=== PATIENT | male | born 1930 | race Caucasian/White ===

== ENCOUNTER → 2020-03-18 | Outpatient (CLI) | payer MEDICARE ==
[2020-03-18 09:51] VITALS: BP 133/84; PULSE 79; RESP 16; TEMP 97.6
--- NOTE | 2020-03-18 10:18 | P.PAINCN ---
History of Present Illness - Reason for Consult Consult date: 03/18/20 - History of Present Illness This is an initial consultation visit for this 89 years old male with a chronic history of severe low back pain with radiation to the lower extremity bilaterally associated with numbness and tingling sensation, the pain is constant and increases with any activity he tried physical therapy, with some benefit, the pain increases with any activity and especially increased with laying flat, and the pain and the numbness waking him up at night, to share with his quality of, he tried physical therapy and chiropractics and he continued to have severe pain, he was evaluated by neurosurgery , and recommended interventional pain management before the surgical option, vision denies any fever or night sweats he denies any change in the bowel movement or urination Past Medical History Past Medical History: Coronary Artery Disease (CAD), Hyperlipidemia, Hypertension Additional Past Medical History / Comment(s): hx of anemia, prostate ca, states neuropathy, states back pain with activity History of Any Multi-Drug Resistant Organisms: None Reported Past Surgical History: Heart Catheterization With Stent Additional Past Surgical History / Comment(s): prostatectomy Past Anesthesia/Blood Transfusion Reactions: No Reported Reaction Date of Last Stent Placement:: 1999 Past Psychological History: No Psychological Hx Reported Smoking Status: Former smoker Past Alcohol Use History: None Reported Additional Past Alcohol Use History / Comment(s): quit smoking cigars approx 25yrs ago, Past Drug Use History: None Reported Medications and Allergies Home Medications Medication Instructions Recorded Confirmed Type Atorvastatin [Lipitor] 40 mg PO DAILY 03/14/20 03/14/20 History Calcium Carbonate [Calcium] 600 mg PO BID 03/14/20 03/14/20 History Ferrous Sulfate [Feosol] 325 mg PO MOWEFR 03/14/20 03/14/20 History Fluticasone Nasal [place] [Flonase 2 spr EA NOSTRIL HS 03/14/20 03/14/20 History Nasal [place]] Gabapentin [Neurontin] 300 mg PO TID 03/14/20 03/14/20 History Losartan [Cozaar] 50 mg PO DAILY 03/14/20 03/14/20 History polyethylene glycoL 3350 [Miralax] 17 gm PO DAILY 03/14/20 03/14/20 History Allergies Allergy/AdvReac Type Severity Reaction Status Date / Time No Known Allergies Allergy Verified 03/18/20 09:39 Physical Exam Vitals: Vital Signs Temp Pulse Resp BP Pulse Ox 03/18/20 09:40 97.6 F 79 16 133/84 100 Physical Examinations : -Constitutiona : Cooperative , not in acute distress . -HEENT : nech : supple , no Lymphadenopathy , normal thyroid size . : eyes : no ptosis , no icterus, no photophobia . - neurologic : Cranial nerve II to XII intact , no focal neurological deffecit . -psychatric : alert , oriented X 3 , appropriate affect , intact judgment and insight . -Lymphatic : no Lymphadenopathy . - musculoskeltal : Lumber spine moter stegnth lower extremities ,thigh and legs 5/5 Right side , 5/5 Left side deep tendon reflexes : normal Knee Jerk , normal ankle Jerk lumber facet Loading Test =positive Right , positive Left Range of motion of the lumbar spine Flexion 30 degrees, extension 10 degrees strait leg raising test = positive at 30 degree bilaterally Fabere test= positive Right , and positive LT . mild tenderness over the Sacroiliac joint on the Right , and Left sides Results Comments: MRI of the lumbar spine without contrast showed multilevel degenerative disc disease and severe spinal stenosis at L3 4 L4 5 and central canal stenosis at L2-3 Assessment and Plan Plan: Assessment and plan=1-lumbar degenerative disc disease. 2-lumbar spinal stenosis multilevels (L2 3 L3 4 and L4 5 ). Patient could benefit from lumbar epidural steroid injections at L4-5 or at L3-4 , procedure risk and benefits and alternatives discussed with the patient he agreed with the preceding Time with Patient: Greater than 30 PQRS Measure Charge Sheet Measure #130: Documentation of Current Meds in Medical Chart: Patient's medications documented in chart Measure #226: Tobacco Use: Screen & Cessation Intervention: Pt not a tobacco user Measure #111: Pneumonia Vaccination: Pneumococcal vaccine NOT administered or previously given Measure #47: Advance Care Plan: Advance care planning discussed & documented, pt chose/unable to give Measure #412: Opioid Treatment Agreement: No documentation of signed opioid treatment agreement Measure #408: Opioid Therapy Follow-up Evaluation: Patient had NO f/u eval minimum every 3 months during opioid therapy Measure #317: Preventitive Care & Scrn High Bld Press & F/U: Normal blood pressure, f/u not required Measure #128: Body Mass Index (BMI) Screening & Follow-up: BMI documented within normal parameters Measure #131: Pain Assessment & Follow-up: Pain positive & plan documented, Follow-up scheduled Measure #431: Unhealthy Alcohol Use Preventative Care & Scrn: Patient not identified as an unhealthy alcohol user PQRS Narrative: Blood Pressure 133/84 Pain Intensity [None] 0 Scale Used Numeric (1 - 10) Hx Alcohol Use (MH) No Home Medications: Ambulatory Orders Atorvastatin [Lipitor] 40 mg PO DAILY 03/14/20 Calcium Carbonate [Calcium] 600 mg PO BID 03/14/20 Ferrous Sulfate [Feosol] 325 mg PO MOWEFR 03/14/20 Fluticasone Nasal [place] [Flonase Nasal [place]] 2 spr EA NOSTRIL HS 03/14/20 Gabapentin [Neurontin] 300 mg PO TID 03/14/20 Losartan [Cozaar] 50 mg PO DAILY 03/14/20 polyethylene glycoL 3350 [Miralax] 17 gm PO DAILY 03/14/20
== END | disposition home or self-care (01) ==
LOC: PNWHC3 09:24
PROVIDERS: ATTEND Specialist
DX: M48.061 Spinal stenosis, lumbar region without neurogenic claudication (principal); M51.36 Other intervertebral disc degeneration, lumbar region; Z79.899 Other long term (current) drug therapy; Z79.891 Long term (current) use of opiate analgesic
CPT/HCPCS: 99211

== ENCOUNTER 2020-04-04 09:44 | Day surgery (SDC) | payer MEDICARE ==
[2020-04-03 10:18] VITALS: BMI 25.1
[~2020-04-04 09:44] MED LIST: LACTATED RINGERS 1,000 ML IV SCH
[2020-04-04 10:15] VITALS: TEMP 97.2
[2020-04-04] MEDS ORDERED: IOPAMIDOL M200 10 ML VIAL ONE (10:47)
[2020-04-04] MEDS ORDERED: methylPREDNISolone ACETATE 40 MG/ML 1 ML VIAL ONE (10:47)
--- NOTE | 2020-04-04 11:05 | P.PCN ---
Date of Procedure: 04/04/20 Procedure(s) Performed: PREOPERATIVE DIAGNOSIS: 1- Lumbar Degenerative Disc Diseases 2-Lumbar spinal stenosis POSTOPERATIVE DIAGNOSIS: Same as preop diagnosis. PROCEDURE 1. Lumbar epidural steroid injection under fluoroscopic guidance at the L$-5 level. (Fluoroscopy imaging was available in radiology department) 2. Lumbar epidurogram. ANESTHESIA: Local with 1% lidocaine 3 ml only. EBL: Minimal PROCEDURE INDICATION: The patient with low back pain and radiculitis symptoms unresponsive to conservative treatment. Fluoroscopy was used to optimize visualization of the needle placement and to maximize safety. PROCEDURE DESCRIPTION / TECHNIQUE: The patient was seen and identified in the preoperative area. Risks, benefits, complications including but not limited to infections ,bleeding ,allergic reaction to the medications ,nerve damage and not complete pain releife , and alternatives were discussed with the patient. The patient agreed to proceed with the procedure and signed the consent, and vital signs were stable. Patient was taken to the OR and time out was completed. The patient was placed in the prone position on procedure table and a pillow was placed under the abdomen to reduce lumbar lordosis. The lumbosacral area was prepped and draped in the usual sterile fashion.ere closely monitored during the procedure. Vital signs was monitered during the entire procedure. Using anterior-posterior fluoroscopy, the L4-5 interlaminar space was identified and the skin over this site was marked and then infiltrated with 1% lidocaine subcutaneously. Subsequently, a 20-gauge Tuohy epidural needle was inserted and advanced toward the epidural space using the ``Loss of resistance technique and guided by AP and lateral fluoroscopy. The correct needle position in the epidural space was verified with the injection of 2 mL of the water soluble contrast dye Isovue 200 contrast and observing an excellent epidurogram with the epidural spread of the dye, after negative aspiration for blood and CSF and in the absence of paresthesias. Again after negative aspiration, a 6 ml mixture containing 40 mg of Depo-medrol , and 2 ml of preservative free Normal Saline, and 2 ml of preservative free lidocaine 1% solution was injected and a washout of epidurogram was seen. Needle was withdrawn intact, skin was cleansed, and bandages were applied. COMPLICATIONS: None DISPOSITION / PLANS: The patient was placed in a supine position and transferred to the recovery area in a stable condition for observation. There was no evidence of lower extremity motor or sensory deficit after the procedure. Patient was discharged from the recovery room after meeting discharge criteria. Home discharge instructions were given to the patient by the staff. The patient was reexamined prior to discharge. The patient will schedule a follow up in the clinic in 2-4 weeks.
[2020-04-04] MEDS ORDERED: IV FLUID CONTINUATION 1,000 ML IV ONE (11:10)
[2020-04-04 11:12] VITALS: BP 132/83; PULSE 64; RESP 16
--- NOTE | 2020-04-04 11:18 | FL ---
EXAMINATION TYPE: FL guided pain mgmt statistic DATE OF EXAM: 04/04/2020 CLINICAL HISTORY: Low back pain. TECHNIQUE: Fluoroscopy. COMPARISON: None. FINDINGS: Fluoroscopic guidance was provided during pain relief procedure performed by Dr. Wheeler . A total of 4 seconds of fluoroscopic time was utilized during the procedure and 1 spot images are acquired. Single image acquired shows needle localization at the superior L5 level. IMPRESSION: As Above.
== END 2020-04-04 11:32 | disposition home or self-care (01) ==
LOC: ORPAIN 09:44
PROVIDERS: ATTEND Specialist
DX: M51.16 Intervertebral disc disorders with radiculopathy, lumbar region (principal); M48.061 Spinal stenosis, lumbar region without neurogenic claudication
CPT/HCPCS: 62323; J1030; Q9966

== ENCOUNTER → 2020-05-06 | Outpatient (CLI) | payer MEDICARE ==
[2020-05-06 09:21] VITALS: BP 136/82; PULSE 83; RESP 18; TEMP 97.7
--- NOTE | 2020-05-06 09:37 | P.PN ---
Subjective Progress Note Date: 05/06/20 This is Follow up visit for this 89 years old male with a chronic history of severe low back pain with radiation to the lower extremity bilaterally associated with numbness and tingling sensation, the pain is constant and increases with any activity he tried physical therapy, with some benefit, the pain increases with any activity and especially increased with laying flat, and the pain and the numbness waking him up at night, to share with his quality of, he tried physical therapy and chiropractics and he continued to have severe pain, he was evaluated by neurosurgery , and recommended interventional pain management before the surgical option, vision denies any fever or night sweats he denies any change in the bowel movement or urination, recently we did lumbar epidural steroid injection at the L4 5 levels x1 he continue to have severe lower extremity pain and numbness and tingling sensation, he had minimal benefit from it, he continued to use Neurontin 300 mg 3 times a day and he reported that he had 0 benefits from it Objective - Vital Signs Vital signs: Vital Signs Temp 97.7 F 05/06/20 09:18 Pulse 83 05/06/20 09:18 Resp 18 05/06/20 09:18 BP 136/82 05/06/20 09:18 Pulse Ox 99 05/06/20 09:18 - Exam -Constitutiona : Cooperative , not in acute distress . -HEENT : nech : supple , no Lymphadenopathy , normal thyroid size . : eyes : no ptosis , no icterus, no photophobia . - neurologic : Cranial nerve II to XII intact , no focal neurological deffecit . -psychatric : alert , oriented X 3 , appropriate affect , intact judgment and insight . -Lymphatic : no Lymphadenopathy . - musculoskeltal : Lumber spine moter stegnth lower extremities ,thigh and legs 5/5 Right side , 5/5 Left side deep tendon reflexes : normal Knee Jerk , normal ankle Jerk lumber facet Loading Test =positive Right , positive Left Range of motion of the lumbar spine Flexion 30 degrees, extension 10 degrees strait leg raising test = positive at 30 degree bilaterally Fabere test= positive Right , and positive LT . mild tenderness over the Sacroiliac joint on the Right , and Left sides Assessment and Plan Plan: MRI of the lumbar spine without contrast showed multilevel degenerative disc disease and severe spinal stenosis at L3 4 L4 5 and central canal stenosis at L2-3 Assessment and Plan Plan: Assessment and plan=1-lumbar degenerative disc disease. 2-lumbar spinal stenosis multilevels (L2- 3, L3-4 and L4 5 ). Patient could benefit from repeat lumbar epidural steroid injections at L4-5 , procedure risk and benefits and alternatives discussed with the patient he agreed with the preceding. if he has no benefit from the injection then patient would be a candidate to have surgery He could benefit from changing his Neurontin to Lyrica 50 mg 3 times a day(patient being on Neurontin 300 mg 3 times a day for several months without any benefit) PQRS Measure Charge Sheet Measure #130: Documentation of Current Meds in Medical Chart: Patient's medications documented in chart Measure #226: Tobacco Use: Screen & Cessation Intervention: Pt not a tobacco user Measure #111: Pneumonia Vaccination: Pneumococcal vaccine NOT administered or previously given Measure #47: Advance Care Plan: Advance care planning discussed & documented, pt chose/unable to give Measure #412: Opioid Treatment Agreement: No documentation of signed opioid treatment agreement Measure #408: Opioid Therapy Follow-up Evaluation: Patient had NO f/u eval minimum every 3 months during opioid therapy Measure #317: Preventitive Care & Scrn High Bld Press & F/U: Normal blood pressure, f/u not required Measure #128: Body Mass Index (BMI) Screening & Follow-up: BMI documented within normal parameters Measure #131: Pain Assessment & Follow-up: Pain positive & plan documented, Follow-up scheduled Measure #431: Unhealthy Alcohol Use Preventative Care & Scrn: Patient not identified as an unhealthy alcohol user PQRS Narrative: Time with Patient: Less than 30
== END | disposition home or self-care (01) ==
LOC: PNWHC3 08:58
PROVIDERS: ATTEND Specialist
DX: M48.061 Spinal stenosis, lumbar region without neurogenic claudication (principal); M51.36 Other intervertebral disc degeneration, lumbar region
CPT/HCPCS: 99211

== ENCOUNTER 2020-06-25 11:24 | Day surgery (SDC) | payer MEDICARE ==
[2020-06-19 15:00] VITALS: BMI 24.4
[2020-06-25 12:02] VITALS: TEMP 97
[2020-06-25] MEDS ORDERED: methylPREDNISolone ACETATE 40 MG/ML 1 ML VIAL ONE (12:38)
[2020-06-25] MEDS ORDERED: IOPAMIDOL M200 10 ML VIAL ONE (12:38)
--- NOTE | 2020-06-25 12:55 | P.PCN ---
Date of Procedure: 06/25/20 Procedure(s) Performed: PREOPERATIVE DIAGNOSIS: 1- Lumbar Degenerative Disc Diseases 2-Lumbar spinal stenosis POSTOPERATIVE DIAGNOSIS: Same as preop diagnosis. PROCEDURE 1. Lumbar epidural steroid injection under fluoroscopic guidance at the L4-5 level. (Fluoroscopy imaging was available in radiology department) 2. Lumbar epidurogram. ANESTHESIA: Local with 1% lidocaine 3 ml only. EBL: Minimal PROCEDURE INDICATION: The patient with low back pain and radiculitis symptoms unresponsive to conservative treatment. Fluoroscopy was used to optimize visualization of the needle placement and to maximize safety. PROCEDURE DESCRIPTION / TECHNIQUE: The patient was seen and identified in the preoperative area. Risks, benefits, complications including but not limited to infections ,bleeding ,allergic reaction to the medications ,nerve damage and not complete pain releife , and a lternatives were discussed with the patient. The patient agreed to proceed with the procedure and signed the consent, and vital signs were stable. Patient was taken to the OR and time out was completed. The patient was placed in the prone position on procedure table and a pillow was placed under the abdomen to reduce lumbar lordosis. The lumbosacral area was prepped and draped in the usual sterile fashion.ere closely monitored during the procedure. Vital signs was monitered during the entire procedure. Using anterior-posterior fluoroscopy, the L4-5 interlaminar space was identified and the skin over this site was marked and then infiltrated with 1% lidocaine subcutaneously. Subsequently, a 20-gauge Tuohy epidural needle was inserted and advanced toward the epidural space using the ``Loss of resistance technique and guided by AP and lateral fluoroscopy. The correct needle position in the epidural space was verified with the injection of 2 mL of the water soluble contrast dye Isovue 200 contrast and observing an excellent epidurogram with the epidural spread of the dye, after negative aspiration for blood and CSF and in the absence of paresthesias. Again after negative aspiration, a 6 ml mixture containing 40 mg of Depo-medrol , and 2 ml of preservative free Normal Saline, and 2 ml of preservative free lidocaine 1% solution was injected and a washout of epidurogram was seen. Needle was withdrawn intact, skin was cleansed, and bandages were applied. COMPLICATIONS: None DISPOSITION / PLANS: The patient was placed in a supine position and transferred to the recovery area in a stable condition for observation. There was no evidence of lower extremity motor or sensory deficit after the procedure. Patient was discharged from the recovery room after meeting discharge criteria. Home discharge instructions were given to the patient by the staff. The patient was reexamined prior to discharge. The patient will schedule a follow up in the clinic in 2-4 weeks.
[2020-06-25 12:57] VITALS: PULSE 74; RESP 16
[2020-06-25 13:12] VITALS: BP 124/71
--- NOTE | 2020-06-25 14:18 | FL ---
EXAMINATION TYPE: FL guided pain mgmt statistic DATE OF EXAM: 06/25/2020 FLUOROSCOPY Fluoroscopy time of 1 seconds was used during lumbar epidural steroid injection. 1 image/s document/ s the procedure.
== END 2020-06-25 13:22 | disposition home or self-care (01) ==
LOC: ORPAIN 11:24
PROVIDERS: ATTEND Specialist
DX: E78.5 Hyperlipidemia, unspecified (principal)
CPT/HCPCS: 62323; J1030; Q9966

== ENCOUNTER → 2020-07-15 | Outpatient (CLI) | payer MEDICARE ==
[2020-07-15 12:43] VITALS: BP 133/81; PULSE 74; RESP 16; TEMP 97.5
--- NOTE | 2020-07-15 12:54 | P.PN ---
Subjective Progress Note Date: 07/15/20 This is an 89-year-old gentleman with history of mostly below the knee leg discomfort as he describes it. The patient has severe central canal stenosis in the lumbar area. He had 2 lumbar epidural steroid injection with only 20% of pain relief lasted for less than a week. Patient denies new-onset weakness, bowel/bladder incontinence, or any other signs or symptoms of cauda equina syndrome. There are no signs of acute intoxication, and no indications of medication diversion or overuse. In addition to above, 13-point review of systems is also negative for chest pain, shortness of breath, changes in vision, changes in hearing, new onset weakness, abdominal pain, diarrhea, extreme fatigue, malaise, fever, skin changes, homicidal or suicidal ideation, or bowel or bladder incontinence. Vital Signs: Reviewed in EMR Gen: AAOx3, NAD HEENT: PERRLA,hearing grossly normal Pulm: resp unlabored Neck: supple, trachea midline Neuro exam of the lower extremities: Decreased knee flexion and extension to 4 out of 5 bilaterally and ankle flexion and extension to 4 out of 5 bilaterally. Neuro: CN II-XII grossly intact, Imaging: Reviewed in EMR/chart Assessment: Severe lumbar stenosis Lumbar DDD Plan: 1. Explanation: Opioid and psychological risk scores were reviewed. Diagnoses, prognoses, and multiple treatment options including but not limited to physical therapy, interventional therapies, adjuvant medical therapies, narcotic medication therapies, and surgery were discussed with the patient and all questions were answered to the patient's satisfaction. 2. Opioid agreement: Signed with the patient and the patient is warned not to use opioids while driving or before driving and not to combine opioids with benzodiazepines or alcohol. 3. Counseling: The patient was counseled extensively on SMOKING CESSATION, BODY MASS INDEX, EXERCISE. Specifically, the patient was instructed regarding the importance of smoking cessation, obesity, and exercise in the context of both chronic pain and overall health. 4. Procedures: The patient failed to respond to epidural steroid injection previously 5. Consultations: Refer to neurosurgery The patient gets any progressive weakness in the lower extremities or any dysfunction in the bowel or bladder 6. Investigations: None 7. Medications: None 8. Disposition: Return to clinic as needed 9. Maps were reviewed and were appropriate. Objective - Vital Signs Vital signs: Vital Signs Temp 97.5 F L 07/15/20 12:40 Pulse 74 07/15/20 12:40 Resp 16 07/15/20 12:40 BP 133/81 07/15/20 12:40 Pulse Ox 96 07/15/20 12:40
== END ==
LOC: PNWHC3 12:28
PROVIDERS: ATTEND Anesthesiology
DX: M48.061 Spinal stenosis, lumbar region without neurogenic claudication (principal); M51.36 Other intervertebral disc degeneration, lumbar region
CPT/HCPCS: 99211